=== PATIENT | male | born 1990 | race Caucasian/White ===

== ENCOUNTER 2022-03-31 18:43 | Emergency (ER) | payer BC ==
[2022-03-31 19:29] LABS: HEMOGLOBIN 16.1 gm/dl (14.0-17.5); RED BLOOD COUNT 5.21 M/UL (4.20-5.50)
[2022-03-31 19:49] LABS: BUN/CREATININE RATIO 15 (0-10)
[2022-03-31] MEDS ORDERED: AEROCHAMBER1 EA XX (22:33)
[2022-03-31] MEDS ORDERED: PROVENTIL HFA6.7 GM INH (22:33)
[2022-03-31] MEDS ORDERED: PREDNISONE20 MG PO (22:33)
== END 2022-03-31 20:50 | disposition home or self-care (01) ==
LOC: ER1 18:43
PROVIDERS: Family Medicine
DX: J44.1 Chronic obstructive pulmonary disease with (acute) exacerbation (principal); J45.909 Unspecified asthma, uncomplicated; Z87.891 Personal history of nicotine dependence; Z88.0 Allergy status to penicillin; Z20.822 Contact with and (suspected) exposure to COVID-19
CPT/HCPCS: 0240U; 36600; 71045; 80053; 82550; 82553; 82803; 83605; 84484; 85025; 93005; 94640; 94664; 94760; 96365; 96375; 99285; J2930; J3475